=== PATIENT | female | born 1935 | race Caucasian/White ===

== ENCOUNTER 2022-07-21 13:55 | Inpatient (IN) | payer MEDICARE, BC ==
[2022-07-21] MEDS ORDERED: hydrALAZINE 20 MG/ML VIAL ONE ×2 (14:14→15:02)
[2022-07-21 14:34] LABS: #Basophils 0.1 thou/uL (0.0-0.2); #Eosinphils 0.3 thou/uL (0.0-0.7); #Lymphocytes 2.1 thou/uL (1.20-3.40); #Monocytes 0.7 thou/uL (0.11-0.59); #Neutrophils 4.6 thou/uL (1.40-6.50); %Basophils 1.2 % (0.0-1.0); %Eosinophils 4.1 % (0.0-10.0); %Lymphocytes 27.3 % (21.0-51.0); %Monocytes 8.7 % (0.0-10.0); %Neutrophils 58.7 % (42.0-75.0); Hemoglobin 13.4 g/dL (12.0-16.0); Mean Corpuscular HGB CONC 32.6 g/dL (32.0-36.0); Mean Corpuscular Hemoglobin 32.3 pg (27.0-31.0); Mean Corpuscular Volume 99.2 fl (78.0-98.0); Mean Platelet Volume 9.3 fL (7.4-10.4); Platelet Count 215 10x3/uL (130-400); RBC Distribution Width 13.5 % (11.5-14.5); Red Blood Cell (RBC) Count 4.15 mill/uL (4.20-5.40); White Blood Cell (WBC) Count 7.8 10x3/uL (4.8-10.8)
[2022-07-21] MEDS ORDERED: Acetaminophen 500 MG TAB ONE (14:57)
[2022-07-21 14:59] LABS: ALT (SGPT) 14 U/L (8-55); AST (SGOT) 21 U/L (5-34); Alkaline Phosphatase 63 U/L (40-110); Anion Gap 12 mmol/L (10-20); BUN (Urea Nitrogen) 15 mg/dL (9.8-20.1); Bilirubin, Total 0.6 mg/dL (0.2-1.2); Calc. Creatinine Clearance 0 mL/min (70-130); Calcium 9.2 mg/dL (7.8-10.44); Carbon Dioxide 25 mmol/L (23-31); Chloride 103 mmol/L (98-107); Estimated GFR 72; Globulin 3.3 g/dL (2.4-3.5); Glucose 94 mg/dL (83-110); Lipase 24 U/L (8-78); Potassium 4.1 mmol/L (3.5-5.1); Protein, Total 7.3 g/dL (5.8-8.1); Sodium 136 mmol/L (136-145)
[2022-07-21] MEDS ORDERED: Ondansetron PF 4 MG/2 ML Vial ONE (15:23)
[2022-07-21 15:43] LABS: Bacteria/HPF None Seen HPF (None Seen); Bilirubin Negative (Negative); Blood, Urine 1+ (Negative); Clarity Clear (Clear); Glucose, Urine (Dipstick) Normal (Negative); Ketone, Urine Negative (Negative); Leukocyte Negative Leu/uL (Negative); Nitrite Negative (Negative); Protein, Urine (Dipstick) 70 mg/dL (Neg-Trace); Specific Gravity, Urine 1.009 (1.002-1.036); Squamous Epithelial None Seen HPF (0-3); Urobilinogen Normal mg/dL (Less than 2); WBC/HPF 0-3 HPF (0-3)
[2022-07-21] MEDS ORDERED: Acetaminophen 325 MG TAB PO PRN (16:50)
[2022-07-21] MEDS ORDERED: niCARdipine 25 MG in Sodium Chloride 0.9% 250 ML 250 ML IVPB PRN ×2 (16:50→17:04)
[2022-07-21] MEDS ORDERED: Senokot S 8.6-50 MG TAB PO PRN (16:50)
[2022-07-21] MEDS ORDERED: Bisacodyl 5 MG TAB PO PRN (16:50)
[2022-07-21 17:47] LABS: Creatinine, Urine Less than 20.00 mg/dL (47-110); Protein, Urine Random Quant 103 mg/dL (1-14)
[2022-07-21 18:08] LABS: SARS-CoV-2 NAA Rapid Test Not Detected (NotDetected)
[2022-07-21] MEDS ORDERED: Labetalol HCl 100 MG/20 ML VIAL SLOW IVP PRN (19:58)
[2022-07-21] MEDS ORDERED: Amlodipine 5 MG TAB ONE (20:04)
[2022-07-22] MEDS ORDERED: hydrALAZINE 20 MG/ML VIAL ONE (05:08)
[2022-07-22] MEDS: hydrALAZINE 20 MG/ML VIAL SLOW IVP PRN ×2 (05:11→16:57)
[2022-07-22 08:49] VITALS: BMI 25.7
[2022-07-22] MEDS ORDERED: Iopamidol-370 76% 500 ML 1 ML ONE (08:59)
[2022-07-22] MEDS ORDERED: Losartan 25 MG TAB PO SCH (09:00)
[2022-07-22] MEDS: Famotidine 20 MG TAB PO SCH ×3 (09:23→20:10)
[2022-07-22] MEDS: Losartan 25 MG TAB PO SCH ×2 (09:23→20:10)
[2022-07-22] MEDS: Amlodipine 10 MG TAB PO SCH (09:23)
[2022-07-22 12:57] LABS: #Basophils 0.1 thou/uL (0.0-0.2); #Eosinphils 0.2 thou/uL (0.0-0.7); #Monocytes 0.6 thou/uL (0.11-0.59); #Neutrophils 5.8 thou/uL (1.40-6.50); %Basophils 0.8 % (0.0-1.0); %Eosinophils 1.8 % (0.0-10.0); %Lymphocytes 23.2 % (21.0-51.0); %Monocytes 7.3 % (0.0-10.0); %Neutrophils 66.9 % (42.0-75.0); Hemoglobin 13.2 g/dL (12.0-16.0); Mean Corpuscular HGB CONC 35.1 g/dL (32.0-36.0); Mean Corpuscular Hemoglobin 34.6 pg (27.0-31.0); Mean Corpuscular Volume 98.6 fl (78.0-98.0); Mean Platelet Volume 8.9 fL (7.4-10.4); Platelet Count 217 10x3/uL (130-400); RBC Distribution Width 13.5 % (11.5-14.5); Red Blood Cell (RBC) Count 3.81 mill/uL (4.20-5.40); White Blood Cell (WBC) Count 8.6 10x3/uL (4.8-10.8)
[2022-07-22 13:17] LABS: Anion Gap 12 mmol/L (10-20); BUN (Urea Nitrogen) 16 mg/dL (9.8-20.1); Calc. Creatinine Clearance 51 mL/min (70-130); Calcium 8.7 mg/dL (7.8-10.44); Carbon Dioxide 25 mmol/L (23-31); Chloride 104 mmol/L (98-107); Estimated GFR 66; Glucose 135 mg/dL (83-110); Potassium 3.8 mmol/L (3.5-5.1); Sodium 137 mmol/L (136-145)
[2022-07-22 13:35] LABS: Free T4 (Free Thyroxine) 0.95 ng/dL (0.70-1.48); Thyroid Stimulating Hormone 3.7844 uIU/mL (0.35-4.94)
[2022-07-22] MEDS ORDERED: Hydrochlorothiazide 25 MG TAB PO SCH (14:00)
[2022-07-22] MEDS ORDERED: niCARdipine 25 MG in Sodium Chloride 0.9% 250 ML 250 ML IVPB PRN (18:07)
[2022-07-23] MEDS: Levothyroxine Sodium 100 MCG TAB PO SCH (05:08)
[2022-07-23] MEDS: hydrALAZINE 20 MG/ML VIAL SLOW IVP PRN ×3 (05:08→20:28)
[2022-07-23] MEDS ORDERED: ALPRAZolam 0.5 MG TAB PO PRN (08:31)
[2022-07-23] MEDS: Losartan 25 MG TAB PO SCH ×2 (08:46→20:27)
[2022-07-23] MEDS: Famotidine 20 MG TAB PO SCH ×2 (08:46→20:28)
[2022-07-23] MEDS: Amlodipine 10 MG TAB PO SCH (08:47)
[2022-07-23] MEDS: Escitalopram Oxalate 10 mg Tablet PO SCH (08:47)
[2022-07-23] MEDS ORDERED: Hydrochlorothiazide 25 MG TAB PO SCH (09:00)
[2022-07-24] MEDS: hydrALAZINE 20 MG/ML VIAL SLOW IVP PRN (02:00)
[2022-07-24] MEDS: Levothyroxine Sodium 100 MCG TAB PO SCH (05:59)
[2022-07-24 06:05] LABS: Anion Gap 11 mmol/L (10-20); BUN (Urea Nitrogen) 15 mg/dL (9.8-20.1); Calc. Creatinine Clearance 56 mL/min (70-130); Calcium 8.9 mg/dL (7.8-10.44); Carbon Dioxide 24 mmol/L (23-31); Chloride 103 mmol/L (98-107); Estimated GFR 72; Glucose 96 mg/dL (83-110); Potassium 3.8 mmol/L (3.5-5.1); Sodium 134 mmol/L (136-145)
[2022-07-24] MEDS: Amlodipine 10 MG TAB PO SCH (08:38)
[2022-07-24] MEDS: Escitalopram Oxalate 10 mg Tablet PO SCH (08:38)
[2022-07-24] MEDS: Famotidine 20 MG TAB PO SCH ×2 (08:39→20:17)
[2022-07-24] MEDS: Losartan 25 MG TAB PO SCH ×2 (08:44→20:17)
[2022-07-24] MEDS ORDERED: hydrALAZINE 25 MG TAB PO SCH (09:45)
[2022-07-24] MEDS: hydrALAZINE 25 MG TAB PO SCH ×2 (14:25→20:16)
[2022-07-25] MEDS: Levothyroxine Sodium 100 MCG TAB PO SCH (05:54)
[2022-07-25] MEDS: Amlodipine 10 MG TAB PO SCH (08:36)
[2022-07-25] MEDS: Famotidine 20 MG TAB PO SCH (08:36)
[2022-07-25] MEDS: hydrALAZINE 25 MG TAB PO SCH (08:36)
[2022-07-25] MEDS: Escitalopram Oxalate 10 mg Tablet PO SCH (08:36)
[2022-07-25] MEDS: Losartan 25 MG TAB PO SCH (08:37)
[2022-07-25 08:38] VITALS: BP 172/74; TEMP 97.7
[2022-07-25] MEDS ORDERED: Losartan 25 MG TAB PO SCH ×2 (10:30→21:00)
[2022-07-25] MEDS ORDERED: hydrALAZINE 25 MG TAB PO SCH ×2 (10:30→15:00)
== END 2022-07-25 11:45 | disposition home or self-care (01) | DRG 305 ==
LOC: ERS 13:55 → ERHOLD 16:50 → 2SW 07-22 08:43
PROVIDERS: ADMIT Hospitalist; ATTEND Hospitalist
DX: I16.1 Hypertensive emergency (principal); Z66 Do not resuscitate; M06.9 Rheumatoid arthritis, unspecified; I70.1 Atherosclerosis of renal artery; Z20.822 Contact with and (suspected) exposure to COVID-19; H35.30 Unspecified macular degeneration; I10 Essential (primary) hypertension; F41.9 Anxiety disorder, unspecified; Z90.49 Acquired absence of other specified parts of digestive tract; Z79.899 Other long term (current) drug therapy
CPT/HCPCS: 36415; 70450; 70551; 71045; 74174; 76770; 80048; 80053; 81003; 81015; 82384; 82570; 83690; 83835; 83880; 84156; 84439; 84443; 84484; 85025; 85652; 86140; 93005; 93975; 96374; 96375; 96376; J0360; J2405; Q9967; U0002

== ENCOUNTER 2022-07-25 16:34 | Inpatient (IN) | payer MEDICARE, BC ==
[2022-07-25 17:04] LABS: #Basophils 0.1 thou/uL (0.0-0.2); #Eosinphils 0.4 thou/uL (0.0-0.7); #Lymphocytes 2.9 thou/uL (1.20-3.40); #Monocytes 1.2 thou/uL (0.11-0.59); #Neutrophils 4.3 thou/uL (1.40-6.50); %Basophils 1.2 % (0.0-1.0); %Eosinophils 4.3 % (0.0-10.0); %Lymphocytes 32.3 % (21.0-51.0); %Monocytes 13.7 % (0.0-10.0); %Neutrophils 48.6 % (42.0-75.0); Hemoglobin 13.2 g/dL (12.0-16.0); Mean Corpuscular HGB CONC 33.5 g/dL (32.0-36.0); Mean Corpuscular Hemoglobin 32.6 pg (27.0-31.0); Mean Corpuscular Volume 97.5 fl (78.0-98.0); Mean Platelet Volume 8.7 fL (7.4-10.4); Platelet Count 259 10x3/uL (130-400); RBC Distribution Width 13.6 % (11.5-14.5); Red Blood Cell (RBC) Count 4.04 mill/uL (4.20-5.40); White Blood Cell (WBC) Count 8.8 10x3/uL (4.8-10.8)
[2022-07-25 17:17] LABS: INR-International Normal Ratio 0.9; Prothrombin Time 12.3 sec (12.0-14.7)
[2022-07-25 17:20] LABS: ALT (SGPT) 16 U/L (8-55); AST (SGOT) 24 U/L (5-34); Alkaline Phosphatase 66 U/L (40-110); Anion Gap 15 mmol/L (10-20); BUN (Urea Nitrogen) 27 mg/dL (9.8-20.1); Bilirubin, Total 0.6 mg/dL (0.2-1.2); CK (CPK) 65 U/L (29-168); CRP (Inflammatory) Less than 0.50 mg/dL (= or < 0.5); Calc. Creatinine Clearance 0 mL/min (70-130); Calcium 8.9 mg/dL (7.8-10.44); Carbon Dioxide 21 mmol/L (23-31); Chloride 101 mmol/L (98-107); Estimated GFR 46; Globulin 2.8 g/dL (2.4-3.5); Glucose 105 mg/dL (83-110); Magnesium 2.1 mg/dL (1.6-2.6); Potassium 4.1 mmol/L (3.5-5.1); Protein, Total 6.8 g/dL (5.8-8.1); Sodium 133 mmol/L (136-145)
[2022-07-25] MEDS ORDERED: Acetaminophen 325 MG TAB PO PRN (19:27)
[2022-07-25] MEDS ORDERED: hydrALAZINE 20 MG/ML VIAL SLOW IVP PRN (19:29)
[2022-07-25] MEDS ORDERED: Sodium Chloride 0.9% 1,000 ML IV SCH (19:30)
[2022-07-25] MEDS ORDERED: Aspirin Chewable 81 MG TAB ONE (19:52)
[2022-07-25] MEDS ORDERED: Aspirin 325 MG TAB ONE (19:59)
[2022-07-25] MEDS: Atorvastatin Calcium 40 MG TAB PO SCH (21:21)
[2022-07-25 22:14] VITALS: BMI 25.6
[2022-07-25] MEDS ORDERED: Lidocaine 2% Jelly 5 ML TUBE TOP SCH (22:15)
[2022-07-25] MEDS ORDERED: tiZANidine HCl 4 MG TAB PO PRN (22:30)
[2022-07-26 03:31] LABS: SARS-CoV-2 NAA Rapid Test Not Detected (NotDetected)
[2022-07-26 05:34] LABS: Hemoglobin A1c 4.7 % (4.0-6.0)
[2022-07-26 05:39] LABS: #Basophils 0.1 thou/uL (0.0-0.2); #Eosinphils 0.3 thou/uL (0.0-0.7); #Lymphocytes 2.2 thou/uL (1.20-3.40); #Monocytes 0.9 thou/uL (0.11-0.59); #Neutrophils 2.8 thou/uL (1.40-6.50); %Basophils 1.3 % (0.0-1.0); %Lymphocytes 34.7 % (21.0-51.0); %Monocytes 14.9 % (0.0-10.0); %Neutrophils 44.1 % (42.0-75.0); Hemoglobin 11.4 g/dL (12.0-16.0); Mean Corpuscular HGB CONC 32.5 g/dL (32.0-36.0); Mean Corpuscular Hemoglobin 32.3 pg (27.0-31.0); Mean Corpuscular Volume 99.1 fl (78.0-98.0); Mean Platelet Volume 9.1 fL (7.4-10.4); Platelet Count 219 10x3/uL (130-400); RBC Distribution Width 13.5 % (11.5-14.5); Red Blood Cell (RBC) Count 3.53 mill/uL (4.20-5.40); White Blood Cell (WBC) Count 6.3 10x3/uL (4.8-10.8)
[2022-07-26 05:49] LABS: Anion Gap 10 mmol/L (10-20); BUN (Urea Nitrogen) 22 mg/dL (9.8-20.1); Calc. Creatinine Clearance 46 mL/min (70-130); Calcium 8.4 mg/dL (7.8-10.44); Carbon Dioxide 24 mmol/L (23-31); Chloride 106 mmol/L (98-107); Estimated GFR 59; Glucose 73 mg/dL (83-110); Sodium 136 mmol/L (136-145)
[2022-07-26] MEDS: Aspirin 81 mg Enteric Coated Tablet PO SCH (08:21)
[2022-07-26] MEDS: Enoxaparin Sodium 40 MG/0.4 ML SYRINGE SC SCH ×2 (08:21→08:29)
[2022-07-26] MEDS: Escitalopram Oxalate 10 mg Tablet PO SCH (08:21)
[2022-07-26] MEDS: Folic Acid 1 MG TAB PO SCH (08:21)
[2022-07-26] MEDS: Levothyroxine Sodium 100 MCG TAB PO SCH (08:21)
[2022-07-26] MEDS ORDERED: ALPRAZolam 0.5 MG TAB PO PRN (09:41)
[2022-07-26] MEDS: Atorvastatin Calcium 40 MG TAB PO SCH (21:40)
[2022-07-27 06:43] LABS: Anion Gap 9 mmol/L (10-20); BUN (Urea Nitrogen) 18 mg/dL (9.8-20.1); Calc. Creatinine Clearance 56 mL/min (70-130); Calcium 8.7 mg/dL (7.8-10.44); Carbon Dioxide 24 mmol/L (23-31); Chloride 108 mmol/L (98-107); Estimated GFR 74; Glucose 77 mg/dL (83-110); Potassium 4.1 mmol/L (3.5-5.1); Sodium 137 mmol/L (136-145)
[2022-07-27] MEDS ORDERED: tiZANidine HCl 4 MG TAB PO PRN (07:39)
[2022-07-27] MEDS: Folic Acid 1 MG TAB PO SCH (07:46)
[2022-07-27] MEDS: Escitalopram Oxalate 10 mg Tablet PO SCH (07:46)
[2022-07-27] MEDS: Levothyroxine Sodium 100 MCG TAB PO SCH (07:46)
[2022-07-27] MEDS: Aspirin 81 mg Enteric Coated Tablet PO SCH (07:46)
[2022-07-27] MEDS ORDERED: Amlodipine 10 MG TAB PO SCH (09:00)
[2022-07-27 09:58] LABS: Hemoglobin 12.3 g/dL (12.0-16.0); Mean Corpuscular HGB CONC 33.6 g/dL (32.0-36.0); Mean Corpuscular Volume 98.3 fl (78.0-98.0); Mean Platelet Volume 9.2 fL (7.4-10.4); Platelet Count 219 10x3/uL (130-400); RBC Distribution Width 13.3 % (11.5-14.5); Red Blood Cell (RBC) Count 3.71 mill/uL (4.20-5.40)
[2022-07-27 11:54] VITALS: BP 162/58; TEMP 97.2
[2022-07-27 12:09] LABS: Eosinophils 5 % (0-10); Lymphocytes 46 % (21-51); MDiff Complete? YES; Monocytes 6 % (0-10); Neutrophil 40 % (42-75); Platelet Morphology Comment Appears Adequate; RBC Morphology Normal
== END 2022-07-27 12:50 | disposition home or self-care (01) | DRG 69 ==
LOC: ERS 16:34 → NEURO 18:19 → OBSVTOIN 07-26 14:38
PROVIDERS: ADMIT Internal Medicine; ATTEND Family Medicine
DX: G45.9 Transient cerebral ischemic attack, unspecified (principal); I16.1 Hypertensive emergency; N17.9 Acute kidney failure, unspecified; F41.9 Anxiety disorder, unspecified; I10 Essential (primary) hypertension; M06.9 Rheumatoid arthritis, unspecified; I70.1 Atherosclerosis of renal artery; I16.0 Hypertensive urgency; Z20.822 Contact with and (suspected) exposure to COVID-19; Z79.899 Other long term (current) drug therapy; Z90.49 Acquired absence of other specified parts of digestive tract; Z90.710 Acquired absence of both cervix and uterus
CPT/HCPCS: 36415; 36416; 70450; 70496; 70498; 70551; 71045; 80048; 80053; 82550; 83036; 83605; 83735; 83880; 84484; 85025; 85610; 85730; 86140; 93005; 93306; J1650; J7050

== ENCOUNTER 2022-11-09 15:16 | Observation (INO) | payer MEDICARE, BC ==
[~2022-11-09 15:16] MED LIST: ISOVUE-370 76%-LOCM 1 ML ONE
[2022-11-09] MEDS ORDERED: FENTANYL 50 MCG/ML 1 ML VIAL ONE (15:55)
[2022-11-09] MEDS ORDERED: Ondansetron PF 4 MG/2 ML Vial ONE (16:26)
[2022-11-09 16:47] LABS: #Eosinphils 0.1 thou/uL (0.0-0.7); #Lymphocytes 0.7 thou/uL (1.20-3.40); #Monocytes 0.4 thou/uL (0.11-0.59); #Neutrophils 3.6 thou/uL (1.40-6.50); %Basophils 0.1 % (0.0-1.0); %Eosinophils 1.6 % (0.0-10.0); %Monocytes 8.6 % (0.0-10.0); %Neutrophils 75.7 % (42.0-75.0); Hemoglobin 10.1 g/dL (12.0-16.0); Mean Corpuscular HGB CONC 35.3 g/dL (32.0-36.0); Mean Corpuscular Hemoglobin 34.8 pg (27.0-31.0); Mean Corpuscular Volume 98.6 fl (78.0-98.0); Mean Platelet Volume 9.2 fL (7.4-10.4); Platelet Count 124 10x3/uL (130-400); RBC Distribution Width 14.4 % (11.5-14.5); Red Blood Cell (RBC) Count 2.91 mill/uL (4.20-5.40); White Blood Cell (WBC) Count 4.8 10x3/uL (4.8-10.8)
[2022-11-09 16:55] LABS: ALT (SGPT) 33 U/L (8-55); AST (SGOT) 52 U/L (5-34); Albumin 3.1 g/dL (3.4-4.8); Alkaline Phosphatase 67 U/L (40-110); Anion Gap 12 mmol/L (10-20); BUN (Urea Nitrogen) 27 mg/dL (9.8-20.1); Bilirubin, Total 0.6 mg/dL (0.2-1.2); Calc. Creatinine Clearance 0 mL/min (70-130); Carbon Dioxide 20 mmol/L (23-31); Chloride 108 mmol/L (98-107); Estimated GFR 53; Globulin 2.6 g/dL (2.4-3.5); Glucose 145 mg/dL (83-110); Potassium 3.6 mmol/L (3.5-5.1); Protein, Total 5.7 g/dL (5.8-8.1); Sodium 136 mmol/L (136-145)
[2022-11-09 17:22] LABS: INR-International Normal Ratio 1.1; PTT 29.9 sec (22.9-36.1); Prothrombin Time 14.2 sec (12.0-14.7)
[2022-11-09 17:32] LABS: Magnesium 1.7 mg/dL (1.6-2.6); Phosphorus 2.6 mg/dL (2.3-4.7)
[2022-11-09] MEDS ORDERED: Ketorolac Tromethamine 30 MG/ML VIAL ONE (17:57)
[2022-11-09] MEDS ORDERED: Morphine 4 MG/ML VIAL SLOW IVP PRN (18:02)
[2022-11-09] MEDS ORDERED: Ipratropium/Albuterol 3 ML NEB NEB PRN (18:02)
[2022-11-09] MEDS ORDERED: Dextrose 5% in Water 1,000 ML IV PRN (18:02)
[2022-11-09] MEDS ORDERED: Dextrose 50% Abboject 50 ML SYRINGE SLOW IVP PRN (18:02)
[2022-11-09] MEDS ORDERED: hydrALAZINE 20 MG/ML VIAL SLOW IVP PRN (18:02)
[2022-11-09] MEDS ORDERED: Ondansetron PF 4 MG/2 ML Vial IVP PRN (18:02)
[2022-11-09] MEDS ORDERED: traMADol HCl 50 MG TAB PO PRN (18:04)
[2022-11-09] MEDS ORDERED: Cyclobenzaprine 10 MG TAB PO PRN (18:04)
[2022-11-09] MEDS ORDERED: Magnesium 2 GM/50 ML(in water) 2 GM in Premix Bag 1 BAG IVPB SCH (18:15)
[2022-11-09] MEDS ORDERED: traMADol HCl 50 MG TAB PO SCH (18:15)
[2022-11-09] MEDS ORDERED: Potassium Phosphate 15 MMOL in Sodium Chloride 0.9% 250 ML 250 ML IVPB SCH (18:15)
[2022-11-09] MEDS ORDERED: Acetaminophen 500 MG TAB PO SCH (18:15)
[2022-11-09] MEDS: Gabapentin 100 MG CAP PO SCH (20:09)
[2022-11-09] MEDS: Senokot S 8.6-50 MG TAB PO SCH (20:09)
[2022-11-09] MEDS ORDERED: Famotidine 20 MG TAB PO SCH (21:00)
[2022-11-09] MEDS ORDERED: Atorvastatin Calcium 40 MG TAB PO SCH (21:00)
[2022-11-09 21:08] VITALS: BMI 24.5
[2022-11-09] MEDS: Carvedilol 6.25 MG TAB PO SCH (21:33)
[2022-11-09 22:51] LABS: SARS-CoV-2 NAA Rapid Test DETECTED (NotDetected)
[2022-11-09] MEDS: Ipratropium/Albuterol 3 ML NEB NEB SCH (22:55)
[2022-11-09] MEDS: Ketorolac Tromethamine 30 MG/ML VIAL IVP SCH (23:44)
[2022-11-09] MEDS: traMADol HCl 50 MG TAB PO SCH (23:45)
[2022-11-09] MEDS: Acetaminophen 500 MG TAB PO SCH (23:45)
[2022-11-10] MEDS: Acetaminophen 500 MG TAB PO SCH ×2 (05:10→12:32)
[2022-11-10] MEDS: traMADol HCl 50 MG TAB PO SCH ×2 (05:11→12:32)
[2022-11-10] MEDS: Ketorolac Tromethamine 30 MG/ML VIAL IVP SCH (05:11)
[2022-11-10] MEDS ORDERED: Levothyroxine Sodium 100 MCG TAB PO SCH (06:00)
[2022-11-10 06:17] LABS: Hemoglobin 10.8 g/dL (12.0-16.0); Mean Corpuscular HGB CONC 34.2 g/dL (32.0-36.0); Mean Corpuscular Hemoglobin 33.6 pg (27.0-31.0); Mean Corpuscular Volume 98.5 fl (78.0-98.0); Mean Platelet Volume 9.1 fL (7.4-10.4); Platelet Count 118 10x3/uL (130-400); RBC Distribution Width 14.3 % (11.5-14.5); Red Blood Cell (RBC) Count 3.22 mill/uL (4.20-5.40)
[2022-11-10 06:42] LABS: Band 3 % (5-11); Lymphocytes 24 % (21-51); MDiff Complete? YES; Monocytes 7 % (0-10); Neutrophil 66 % (42-75); Platelet Morphology Comment Appears Decreased; White Blood Cell (WBC) Count 4.4 10x3/uL (4.8-10.8)
[2022-11-10 06:53] LABS: Anion Gap 12 mmol/L (10-20); BUN (Urea Nitrogen) 19 mg/dL (9.8-20.1); Calc. Creatinine Clearance 55 mL/min (70-130); Calcium 8.1 mg/dL (7.8-10.44); Carbon Dioxide 19 mmol/L (23-31); Chloride 111 mmol/L (98-107); Estimated GFR 76; Glucose 103 mg/dL (83-110); Magnesium 2.2 mg/dL (1.6-2.6); Phosphorus 3.9 mg/dL (2.3-4.7); Potassium 3.6 mmol/L (3.5-5.1); Sodium 138 mmol/L (136-145)
[2022-11-10] MEDS ORDERED: Potassium Phosphate 15 MMOL in Sodium Chloride 0.9% 250 ML 250 ML IVPB SCH (07:30)
[2022-11-10] MEDS ORDERED: tiZANidine HCl 4 MG TAB PO PRN (07:37)
[2022-11-10] MEDS ORDERED: Aspirin 81 mg Enteric Coated Tablet PO SCH (09:00)
[2022-11-10] MEDS ORDERED: Polyethylene Glycol 3350 17 GM Packet PO SCH (09:00)
[2022-11-10] MEDS ORDERED: Clopidogrel Bisulfate 75 MG TAB PO SCH (09:00)
[2022-11-10] MEDS ORDERED: Losartan 25 MG TAB PO SCH (09:00)
[2022-11-10] MEDS ORDERED: Folic Acid 1 MG TAB PO SCH (09:00)
[2022-11-10] MEDS ORDERED: Amlodipine 10 MG TAB PO SCH (09:00)
[2022-11-10] MEDS ORDERED: Escitalopram Oxalate 10 mg Tablet PO SCH (09:00)
[2022-11-10] MEDS: Carvedilol 6.25 MG TAB PO SCH (09:39)
[2022-11-10] MEDS: Senokot S 8.6-50 MG TAB PO SCH (09:40)
[2022-11-10] MEDS: Gabapentin 100 MG CAP PO SCH ×2 (09:40→15:07)
[2022-11-10] MEDS: Ipratropium/Albuterol 3 ML NEB NEB SCH (12:46)
[2022-11-10] MEDS ORDERED: Ibuprofen 200 MG TAB PO SCH (14:00)
[2022-11-10 15:15] VITALS: BP 133/61; TEMP 97.3
== END 2022-11-10 15:02 | disposition home or self-care (01) ==
LOC: ERS 15:16 → SURG A 17:33
PROVIDERS: ADMIT Surgery; ATTEND Surgery
DX: S27.0XXA Traumatic pneumothorax, initial encounter (principal); S22.42XA Multiple fractures of ribs, left side, initial encounter for closed fracture; G89.11 Acute pain due to trauma; U07.1 COVID-19; I11.9 Hypertensive heart disease without heart failure; E89.0 Postprocedural hypothyroidism; M06.9 Rheumatoid arthritis, unspecified; Z86.73 Personal history of transient ischemic attack (TIA), and cerebral infarction without residual deficits; Z79.02 Long term (current) use of antithrombotics/antiplatelets; Z79.620 Long term (current) use of immunosuppressive biologic; Z79.82 Long term (current) use of aspirin; Z79.899 Other long term (current) drug therapy; Z88.2 Allergy status to sulfonamides; V89.2XXA Person injured in unspecified motor-vehicle accident, traffic, initial encounter
CPT/HCPCS: 70450; 71045; 71260; 72125; 74177; 80048; 80053; 83605; 83735 ×2; 84100 ×2; 85025 ×2; 85610; 85730; 96365; 96366 ×2; 96367; 96375 ×2; 96376 ×2; 97530; 97535; 99285; G0378 ×3; J0360; J3010; U0002; 36415; 96374; J1885; J2405; J3475; J7050; Q9966

== ENCOUNTER 2022-11-29 08:36 | Day surgery (SDC) | payer MEDICARE, BC ==
[2022-11-28 15:55] VITALS: BMI 23.8
== END 2022-11-29 11:30 | disposition home or self-care (01) ==
LOC: SDC 08:36
PROVIDERS: ATTEND Thoracic Surgery (Cardiothoracic Vascular Surgery)
PROC: 0W9B3ZZ Drainage of Left Pleural Cavity, Percutaneous Approach (ICD-10-PCS; principal; 2022-11-29)
DX: J94.2 Hemothorax (principal); Z79.02 Long term (current) use of antithrombotics/antiplatelets; Z79.620 Long term (current) use of immunosuppressive biologic; Z79.82 Long term (current) use of aspirin; Z79.890 Hormone replacement therapy; Z79.899 Other long term (current) drug therapy; Z88.2 Allergy status to sulfonamides
CPT/HCPCS: 32554; 71045

== ENCOUNTER 2022-12-06 12:33 | Outpatient (CLI) | payer MEDICARE, BC | END 2022-12-06 12:34 | disposition home or self-care (01) | LOC: RAD 12:33 | PROVIDERS: ATTEND Nurse Practitioner Adult Health | DX: J90 Pleural effusion, not elsewhere classified (principal) | CPT/HCPCS: 71046 ==

== ENCOUNTER 2023-06-20 17:10 | Emergency (ER) | payer OTHER, MEDICARE, BC ==
[2023-06-20] MEDS ORDERED: Ondansetron PF 4 MG/2 ML Vial ONE (18:42)
[2023-06-20] MEDS ORDERED: Morphine 4 MG/ML VIAL ONE (18:42)
[2023-06-20] MEDS ORDERED: fentaNYL 50 mcg/mL 1 mL Vial ONE (19:08)
[2023-06-20] MEDS ORDERED: Lidocaine 1% w/Epinephrine 1:100K 20 ML VIAL ONE (19:21)
[2023-06-20] MEDS ORDERED: Boostrix 0.5 ML (Tdap) VIAL (>/=7 yrs of age) ONE (19:58)
== END 2023-06-20 20:17 | disposition home or self-care (01) ==
LOC: ERS 17:10
DX: S42.351A Displaced comminuted fracture of shaft of humerus, right arm, initial encounter for closed fracture (principal); S01.81XA Laceration without foreign body of other part of head, initial encounter; S83.91XA Sprain of unspecified site of right knee, initial encounter; I48.91 Unspecified atrial fibrillation; I10 Essential (primary) hypertension; Z79.02 Long term (current) use of antithrombotics/antiplatelets; Z79.899 Other long term (current) drug therapy; W01.0XXA Fall on same level from slipping, tripping and stumbling without subsequent striking against object, initial encounter
CPT/HCPCS: 70450; 71045; 72125; 73060; 73090; 73120; 73564; 80074; 80076; 82565; 85025; 86140; 90471; 90715; 96374; 96375; 99284; J3010; 36415; J2270; J2405

== ENCOUNTER 2023-09-25 13:42 | Outpatient (CLI) | payer BC, MEDICARE ==
[2023-09-25 15:05] LABS: Anion Gap 12 mmol/L (10-20); BUN (Urea Nitrogen) 23 mg/dL (9.8-20.1); Calc. Creatinine Clearance 0 mL/min (70-130); Calcium 8.4 mg/dL (7.8-10.44); Carbon Dioxide 23 mmol/L (23-31); Chloride 108 mmol/L (98-107); Estimated GFR 61; Glucose 117 mg/dL (83-110); Potassium 4.3 mmol/L (3.5-5.1); Sodium 139 mmol/L (136-145)
[2023-09-25 15:07] LABS: Hematocrit 34.2 % (34.9-44.5); Hemoglobin 11.5 g/dL (12.0-15.5); Mean Corpuscular HGB CONC 33.6 g/dL (32.0-36.0); Mean Corpuscular Hemoglobin 30.8 pg (27.0-33.0); Mean Corpuscular Volume 91.7 fl (81.6-98.3); Mean Platelet Volume 11.3 fl (7.4-10.4); Platelet Count 237 10x3/uL (150-450); RBC Distribution Width 15.5 % (11.5-14.5); Red Blood Cell (RBC) Count 3.73 10x6/uL (3.90-5.03); White Blood Cell (WBC) Count 4.6 10x3/uL (3.5-10.5)
== END 2023-09-25 13:43 | disposition home or self-care (01) ==
LOC: LABBT 13:42
PROVIDERS: ATTEND Orthopaedic Surgery
DX: Z01.818 Encounter for other preprocedural examination (principal)
CPT/HCPCS: 80048; 85027; 93005; 93010